=== PATIENT | male | born 1940 | race Two or more races ===

== ENCOUNTER 2019-10-13 09:36 | Emergency (ER) | payer OTHER ==
[~2019-10-13] VITALS: Ht 182.9 cm; Wt 117.9 kg
[~2019-10-13 09:36] MED LIST: ASPIR 8181 MG PO; HYDROCHLOROTHIA25 MG PO; KETO10TA2 PO; LISINOPRIL40 MG PO; METFORMIN HCL850 MG PO; NEURONTIN300 MG PO; NORVASC10 MG PO; ORPH100T PO; PAROXETINE HCL20 MG PO; PROSCAR5 MG PO; TERAZOSIN HCL10 MG PO; VYTORIN 10-201 EACH PO; XARELTO20 MG PO; ZYLOPRIM100 MG PO
[2019-10-13] MEDS ORDERED: FORTAMET500 MG PO (10:47)
== END 2019-10-13 11:30 | disposition home or self-care (01) ==
LOC: ER 09:36
DX: L29.8 Other pruritus (principal)